=== PATIENT | female | born 1965 | race Two or more races ===

== ENCOUNTER 2017-01-11 13:19 | Emergency (ER) | payer BC, OTHER ==
--- NOTE | 2017-01-11 13:32 | CPEKG ---
Heart Rate: 57 RR Interval: 1053 P-R Interval: 136 QRSD Interval: 90 QT Interval: 436 QTC Interval: 425 P [place]: 61 QRS [place]: 65 T Wave [place]: 40 EKG Severity - NORMAL ECG - EKG Impression: SINUS RHYTHM Electronically Signed By: Brooke Sweet 11-Jan-2017 20:09:43
--- NOTE | 2017-01-11 13:34 | EDPHY ---
H & P Time Seen by Provider: 01/11/17 13:24 HPI/ROS: CHIEF COMPLAINT: Abdominal pain. HISTORY OF PRESENT ILLNESS: The patient is a 51-year-old female with a history of gastric bypass, hysterectomy, and cholecystectomy who presents with "shooting " lower left abdominal that began at 1130 today (2 hours ago). Pain is severe and persistent. The pain started in the left lower quadrant and then migrated upwards towards the left upper quadrant and radiated to her chest, left arm, and neck. It does not radiate to her back. She admits associated nausea. The pain is worsened with deep breathing. No fever, vomiting, diarrhea, hematuria, dysuria. REVIEW OF SYSTEMS: A complete 10-point review of systems was performed and is negative except for those items mentioned in the HPI. Past Medical/Surgical History: Gastric bypass, cholecystectomy, hysterectomy. Social History: Works at [employer]. Physical Exam: General Appearance: Alert, appears in severe pain, hyperventilating. Eyes: Pupils equal and round, no conjunctival pallor or injection ENT, Mouth: Mucous membranes moist Neck: Normal inspection Respiratory: Lungs are clear to auscultation Cardiovascular: Tachycardic, Regular rhythm Gastrointestinal: Abdomen is soft. Decreased bowel sounds. Diffuse tenderness, especially in LUQ. Neurological: A&O, nonfocal exam Skin: Warm and dry, no rash Extremities: Nontender, no pedal edema Psychiatric: Mood and affect normal Constitutional: Initial Vital Signs Temperature (C) 37.1 C 01/11/17 13:28 Heart Rate 73 01/11/17 13:28 Respiratory Rate 18 01/11/17 13:28 Blood Pressure 187/119 H 01/11/17 13:28 O2 Sat (%) 94 01/11/17 13:28 O2 Delivery Mode Nasal Cannula O2 (L/minute) 2 Allergies/Adverse Reactions: No Known Allergies Allergy (Unverified 01/11/17 13:28) Home Medications: Medication Instructions Recorded NK [No Known Home Meds] 01/11/17 Medical Decision Making - Diagnostics Imaging Results: Imaging Impressions Abdomen/Pelvis CT 01/11/17 13:48 Impression: 1. Thickening of the mesentery and omentum in the left upper abdomen adjacent to the anastomosis between stomach and small bowel loops. Question the possibility of focal breakdown of the wall in this region of the anastomosis with possible extraluminal gas bubbles. No abscess seen. If indicated, consider repeat CT imaging of the upper abdomen with IV contrast and oral contrast administration. 2. Mild amount of ascites. Findings discussed with Brooke Sweet M.D. at 14:49 hour, 01/11/2017. Imaging: Discussed imaging studies w/ outbound call center representative Radiologist ED Course/Re-evaluation: 51-year-old female presents with 2 hours of severe abdominal pain. On exam she is diffusely tender but is most tender in the LUQ. An IV was established. 4mg IV Zofran and 4mg IV Morphine administered for nausea and pain. Abdomen/pelvis CT ordered. 1453: CT results conveyed to me by radiology. See Imaging reports section for official report. I reassessed the patient and discussed CT results with her at this time. She continues to have moderate pain. 0.5mg IV Dilaudid administered. 1502: Consulted with Dr. Zee. He will consult on the patient. 1540: I spoke with Dr. Zee, who is trying to contact the patient's surgeon , Dr. Robertson. 1gm IV Invanz and 40mg IV Protonix given. 1551: Dr. Zee has spoken to Dr. Robertson, who recommends transfer to [facility]. 1617: Consulted with Dr. Kapoor, [facility] hospitalist. He accepts the patient transfer to [facility]. EMTALA completed. This patient required multiple doses of IV narcotics to control her pain throughout her emergency department stay. Abdominal exam remained unchanged on serial exams x3. Differential Diagnosis: Differential diagnosis includes though it is not limited to appendicitis, cholecystitis, diverticulitis, pyelonephritis, bowel perforation, small bowel obstruction. - Data Points Laboratory Results: Laboratory Results 01/11/17 13:32 01/11/17 13:32 01/11/17 01/11/17 13:32 13:32 WBC 9.33 10^3/uL 10^3/uL (3.80-9.50) RBC 5.27 10^6/uL 10^6/uL (4.18-5.33) Hgb 15.1 g/dL g/dL (12.6-16.3) Hct 45.1 % % (38.0-47.0) MCV 85.6 fL fL (81.5-99.8) MCH 28.7 pg pg (27.9-34.1) MCHC 33.5 g/dL g/dL (32.4-36.7) RDW 13.6 % % (11.5-15.2) Plt Count 297 10^3/uL 10^3/uL (150-400) MPV 10.4 fL fL (8.7-11.7) Neut % (Auto) 63.8 % % (39.3-74.2) Lymph % (Auto) 30.4 % % (15.0-45.0) Polk % (Auto) 4.1 % L % (4.5-13.0) Eos % (Auto) 1.2 % % (0.6-7.6) Baso % (Auto) 0.3 % % (0.3-1.7) Nucleat RBC Rel Count 0.0 % % (0.0-0.2) Absolute Neuts (auto) 5.95 10^3/uL 10^3/uL (1.70-6.50) Absolute Lymphs (auto) 2.84 10^3/uL 10^3/uL (1.00-3.00) Absolute Monos (auto) 0.38 10^3/uL 10^3/uL (0.30-0.80) Absolute Eos (auto) 0.11 10^3/uL 10^3/uL (0.03-0.40) Absolute Basos (auto) 0.03 10^3/uL 10^3/uL (0.02-0.10) Absolute Nucleated RBC 0.00 10^3/uL 10^3/uL (0-0.01) Immature Gran % 0.2 % % (0.0-1.1) Immature Gran # 0.02 10^3/uL 10^3/uL (0.00-0.10) Sodium 138 mEq/L mEq/L (134-144) Potassium 4.1 mEq/L mEq/L (3.5-5.2) Chloride 102 mEq/L mEq/L (97-110) Carbon Dioxide 26 mEq/l mEq/l (22-31) Anion Gap 10 mEq/L mEq/L (8-16) BUN 22 mg/dL mg/dL (7-23) Creatinine 0.7 mg/dL mg/dL (0.6-1.0) Estimated GFR > 60 Glucose 131 mg/dL H mg/dL (70-100) Calcium 9.6 mg/dL mg/dL (8.5-10.4) Total Bilirubin 0.9 mg/dL mg/dL (0.1-1.4) Conjugated Bilirubin 0.5 mg/dL mg/dL (0.0-0.5) Unconjugated Bilirubin 0.4 mg/dL mg/dL (0.0-1.1) AST 24 IU/L IU/L (14-46) ALT 36 IU/L IU/L (9-52) Alkaline Phosphatase 99 IU/L IU/L (38-126) Total Protein 7.9 g/dL g/dL (6.3-8.2) Albumin 4.6 g/dL g/dL (3.5-5.0) Lipase 70.0 IU/L IU/L (23-300) Medications Given: Discontinued Medications Hydromorphone HCl (Dilaudid) 0.5 mg IVP EDNOW ONE Stop: 01/11/17 14:59 Last Admin: 01/11/17 15:00 Dose: 0.5 mg Hydromorphone HCl (Dilaudid) 0.5 mg IVP EDNOW ONE Stop: 01/11/17 16:28 Last Admin: 01/11/17 16:35 Dose: 0.5 mg Ertapenem 1 gm/ Sodium (Chloride) 100 mls @ 200 mls/hr IV EDNOW ONE PRN Reason: Protocol Stop: 01/11/17 16:10 Last Admin: 01/11/17 16:35 Dose: 100 mls Pantoprazole Sodium 40 mg/ (Sodium Chloride) 100 mls @ 200 mls/hr IV EDNOW ONE Stop: 01/11/17 16:11 Last Admin: 01/11/17 16:29 Dose: 100 mls Sodium Chloride (Ns) 1,000 mls @ 0 mls/hr IV ONCE ONE PRN Reason: Wide Open Stop: 01/11/17 18:40 Last Admin: 01/11/17 18:40 Dose: 1,000 mls Morphine Sulfate (Morphine) 4 mg IVP EDNOW ONE Stop: 01/11/17 13:38 Last Admin: 01/11/17 13:40 Dose: 4 mg Morphine Sulfate (Morphine) 2 mg IVP EDNOW ONE Stop: 01/11/17 14:15 Last Admin: 01/11/17 14:18 Dose: 2 mg Morphine Sulfate (Morphine) 2 mg IVP EDNOW ONE Stop: 01/11/17 14:39 Last Admin: 01/11/17 14:41 Dose: 2 mg Ondansetron HCl (Zofran) 4 mg IVP EDNOW ONE Stop: 01/11/17 13:37 Last Admin: 01/11/17 13:40 Dose: 4 mg Ondansetron HCl (Zofran) 4 mg IVP EDNOW ONE Stop: 01/11/17 14:59 Last Admin: 01/11/17 15:06 Dose: 4 mg Departure - Departure Disposition: Acute Care [facility] Clinical Impression: Bowel perforation Condition: Fair Referrals: NONE *PRIMARY CARE P,. [Primary Care Provider] - As per Instructions Report Scribed for: Brooke Sweet Report Scribed by: Robert Prado Date of Report: 01/11/17 Time of Report: 13:34 Physician Review and Approval Statement: 01/11/17 13:34 Portions of this note were transcribed by a medical center manager. I personally performed a history, physical exam, medical decision making, and confirmed accuracy of information the transcribed note.
[2017-01-11] MEDS ORDERED: ONDANSETRON 4 MG/2 ML VIAL IVP ONE ×2 (13:36→14:58)
[2017-01-11 13:59] LABS: % IMMATURE GRANULYOCYTES 0.2 % (0.0-1.1); ABSOLUTE IMMATURE GRANULOCYTES 0.02 10^3/uL (0.00-0.10); ADD DIFF? NO; ADD MORPH? NO; ADD SCAN? NO; ALANINE AMINOTRANSFERASE 36 IU/L (9-52); ALBUMIN 4.6 g/dL (3.5-5.0); ALKALINE PHOSPHATASE 99 IU/L (38-126); ANION GAP 10 mEq/L (8-16); ASPARTATE AMINOTRANSFERASE 24 IU/L (14-46); ATYPICAL LYMPHOCYTE FLAG 0 (0-99); BILIRUBIN,TOTAL 0.9 mg/dL (0.1-1.4); BILIRUBIN-CONJUGATED 0.5 mg/dL (0.0-0.5); BILIRUBIN-UNCONJUGATED 0.4 mg/dL (0.0-1.1); CALCIUM 9.6 mg/dL (8.5-10.4); CARBON DIOXIDE 26 mEq/l (22-31); CHLORIDE 102 mEq/L (97-110); CREATININE 0.7 mg/dL (0.6-1.0); FRAGMENT RBC FLAG 0 (0-99); GLOMERULAR FILTRATION RATE > 60; GLUCOSE 131 mg/dL (70-100); HEMATOCRIT 45.1 % (38.0-47.0); HEMOGLOBIN 15.1 g/dL (12.6-16.3); LEFT SHIFT FLG 0 (0-99); LIPEMIA HEMOLYSIS FLAG 80 (0-99); MEAN CELL HEMOGLOBIN 28.7 pg (27.9-34.1); MEAN CELL HEMOGLOBIN CONCENTR. 33.5 g/dL (32.4-36.7); MEAN CELL VOLUME 85.6 fL (81.5-99.8); MEAN PLATELET VOLUME 10.4 fL (8.7-11.7); PLATELET CLUMPS FLAG 10 (0-99); PLATELET COUNT 297 10^3/uL (150-400); POTASSIUM 4.1 mEq/L (3.5-5.2); RED BLOOD CELL COUNT 5.27 10^6/uL (4.18-5.33); RED CELL DISTRIBUTION WIDTH 13.6 % (11.5-15.2); SODIUM 138 mEq/L (134-144); TOTAL PROTEIN 7.9 g/dL (6.3-8.2)
[2017-01-11] MEDS ORDERED: HYDROmorphONE/DILAUDID 1 MG/ML SYR IVP ONE ×3 (14:58→18:53)
[2017-01-11] MEDS ORDERED: ERTAPENEM 1 GM in NS 100 ML IV ONE (15:41)
[2017-01-11] MEDS ORDERED: PANTOPRAZOLE SODIUM 40 MG in NS 100 ML IV ONE (15:42)
--- NOTE | 2017-01-11 15:56 | GDS ---
[f rep st] TRANSFER SUMMARY CHIEF COMPLAINT: Left upper quadrant pain. PRESENT IILLNESS: The patient is a 51-year-old female, status post gastric bypass procedure approxi mately 2 years ago at [facility], doing well, now presents with left upper quadrant pain, sev ere, abrupt onset, starting at 11:30 a.m. this morning. PAST MEDICAL HISTORY: None. ALLERGIES: None. MEDICATIONS: None. SOCIAL HISTORY: Nonsmoker. No alcohol use. REVIEW OF SYSTEMS: Denies asthma, heart trouble, diabetes, epilepsy, rheumatic fever. Highest [facility] ht was 204, currently weighs 150. PAST SURGICAL HISTORY: Gastric bypass 2 years ago, bilateral carpal tunnel, hysterectomy, cholecyst ectomy. All these procedures done laparoscopically. PHYSICAL EXAMINATION: GENERAL: Pleasant female, in mild distress. HEENT: No scleral icterus. Ph arynx clear. NECK: Supple without adenopathy. LUNGS: Clear. HEART: Normal S1, S2 without murmu r. ABDOMEN: Tender in the left upper quadrant. Soft in the lower abdomen, although some tendernes s. EXTREMITIES: Grossly unremarkable. NEUROLOGIC: Grossly unremarkable. LABORATORY DATA: White blood count 9.3, hematocrit 45, glucose mildly elevated, but otherwise labs are normal. CT scan is reviewed with the radiologist. This shows multiple surgical clips in numerous areas in t he abdomen, but in particular, there appears to be a gastric pouch surrounded by mitali, as well as an area where this empties into the jejunum. There are probably a few small extraluminal air bubbl es, some thickening, and clearly inflammation around this area, and free fluid around the spleen, as well as in the pelvis. ASSESSMENT: Probable ulceration and perforation of anastomotic site of gastric bypass. RECOMMENDATIONS: The patient is currently quite stable. I recommend she be transferred to a [facility] surgical facility with familiarity in repairing these problems. If this cannot be arranged yasmani márquez or her condition deteriorates, I certainly can explore her for likely Forest patch closure of th e perforation site. I have made a phone call to Dr. Boris Robertson, who did her surgery 2 years ago, an d I am awaiting a response. /[id number]/MODL
[2017-01-11] MEDS ORDERED: IOPAMIDOL (ISOVUE-300) 100 ML BTL IV ONE (15:58)
[2017-01-11 17:07] VITALS: RESP 20; TEMP 98.6; O2SAT 99
[2017-01-11] MEDS ORDERED: NS 1,000 ML IV ONE (18:39)
[2017-01-11 18:41] VITALS: BP 135/84; PULSE 80
[2017-01-11] MEDS ORDERED: HYDROmorphONE/DILAUDID 1 MG/ML SYR ONE (18:48)
== END 2017-01-11 18:53 | disposition short-term general hospital (02) ==
DX: K63.1 Perforation of intestine (nontraumatic) (principal); Z90.49 Acquired absence of other specified parts of digestive tract; Z90.710 Acquired absence of both cervix and uterus; Z98.84 Bariatric surgery status
CPT/HCPCS: 96365; J1170; J1335; J2405; Q9967